=== PATIENT | female | born 1970 | race Caucasian/White ===

== ENCOUNTER 2024-09-30 13:58 | Emergency (ER) | payer OTHER, SELFPAY ==
[2024-09-30 13:59] VITALS: BMI 30.1
[2024-09-30 14:19] VITALS: BP 120/85; PULSE 103; RESP 18; TEMP 36.4; O2SAT 99
--- NOTE | 2024-09-30 14:29 | XR_ITS ---
Examination: Wrist, left 3 views Technique: Wrist AP, oblique, lateral 3 views Date and time of exam: September 30, 2024 1502 hours INDICATIONS: Patient fell today with injury to the wrist, wrist pain. FINDINGS: Severe osteopenia Severe narrowing radiocarpal intercarpal carpometacarpal joints No acute wrist fracture No opaque foreign body IMPRESSION: No acute wrist fracture Suggest short-term follow-up as clinically warranted
--- NOTE | 2024-09-30 14:29 | XR_ITS ---
EXAMINATION: Ankle, right 3 views . Technique: Ankle AP, oblique, lateral 3 views Date and time of exam: September 30, 2024 1502 hours INDICATIONS: Patient fell today with injury to the ankle, ankle pain. FINDINGS: Age-indeterminate fibular tip fracture No ankle dislocation Intertarsal osteoarthritis IMPRESSION: Nondisplaced fibular tip fracture
--- NOTE | 2024-09-30 14:29 | XR_ITS ---
Examination: Hand, left 3 views Technique: Hand AP, oblique, lateral 3 views Date and time of exam: September 30, 2024 at 1502 hours INDICATIONS: Patient fell today with injury to the wrist, wrist pain FINDINGS: Severe osteopenia Advanced narrowing radiocarpal intercarpal and carpometacarpal joints No acute fracture No dislocation IMPRESSION: No acute fracture
[2024-09-30 16:07] VITALS: BP 140/90; PULSE 86; RESP 18; TEMP 36.7; O2SAT 99
--- NOTE | 2024-09-30 17:29 | EDNOTE_ITS ---
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 Patient ports no head or neck injury Limitations: no limitations Related Data Home Medications ?Medication ?Instructions ?Recorded ?Confirmed adalimumab 40 mg/0.8 mL 40 mg subcut biwk ##0 05/23/14 subcutaneous syringe kit (Humira) lisdexamfetamine 50 mg capsule 50 mg PO QDAY #0 caps 05/23/14 (Vyvanse) Previous Rx's ?Medication ?Instructions ?Recorded tobramycin 0.3 % eye drops 2 drp Both eyes QID #5 mL 10/14/17 ondansetron HCl 4 mg tablet 4 mg PO TID PRN nausea and 07/02/22 vomiting #20 tabs Allergies Allergy/AdvReac Type Severity Reaction Status Date / Time codeine Allergy Severe VOMITING Unverified 09/30/24 14:01 Review of Systems Review of Systems Systems Reviewed: All systems reviewed, normal except as documented Constitutional Constitutional: Reports system reviewed and no additional complaints, except as documented, Denies fever(s) and Denies headache(s) Eyes Eyes: Reports system reviewed and no additional complaints, except as documented and Denies blurry vision ENT Ears, Nose, Mouth, and Throat: Reports system reviewed and no additional complaints, except as documented, Denies headache(s), Denies nasal congestion and Denies nasal discharge Cardiovascular Cardiovascular: Reports system reviewed and no additional complaints, except as documented, Denies chest pain and Denies dyspnea Respiratory Respiratory: Reports system reviewed and no additional complaints, except as documented, Denies chest congestion, Denies cough and Denies dyspnea Gastrointestinal Gastrointestinal: Reports system reviewed and no additional complaints, except as documented and Denies abdominal pain Musculoskeletal Musculoskeletal: Reports system reviewed and no additional complaints, except as documented and Reports other (Right ankle pain, left wrist and hand pain) Integumentary/Breasts Skin/Breast: Reports system reviewed and no additional complaints, except as documented and Denies rash Neurologic Neurologic: Reports system reviewed and no additional complaints, except as documented, Reports as per HPI and Denies headache(s) Past Medical History Social History SMOKING STATUS: Never smoker ED Exam General Limitations: Present no limitations General appearance: Present alert and in no apparent distress Head Head exam: Present atraumatic Eye Eye exam: Present normal appearance, PERRL and EOMI ENT ENT exam: Present normal exam, normal oropharynx and mucous membranes moist Neck Neck exam: Present normal inspection, full ROM and trachea midline Chest Chest inspection: Present normal inspection and symmetric chest wall rise Respiratory Respiratory exam: Present normal lung sounds bilaterally Cardiovascular Cardiovascular exam: Present regular rate, normal rhythm and normal heart sounds Abdominal Exam Abdominal exam: Present soft and normal bowel sounds Extremities Exam Extremities exam: Present full ROM, tenderness, normal capillary refill and other (Right ankle pain, left wrist and hand pain) Back Exam Back exam: Present normal inspection and full ROM Neurological Exam Neurological exam: Present alert, oriented X3 and CN II-XII intact Psychiatric Psychiatric exam: Present normal affect and normal mood Skin Skin exam: Present warm, dry, intact and normal color Course Quality Measures none Orders Category Date Time Status XR ankle comp RT min 3V Stat Exams 09/30/24 14:29 Completed XR hand comp LT min 3V Stat Exams 09/30/24 14:29 Completed XR wrist comp LT min 3V Stat Exams 09/30/24 14:29 Completed Vital Signs Vital signs: Vital Signs Temperature 97.6 F 09/30/24 14:19 Pulse Rate 103 H 09/30/24 14:19 Respiratory Rate 18 09/30/24 14:19 Blood Pressure 120/85 H 09/30/24 14:19 Pulse Oximetry (%) 99 09/30/24 14:19 Oxygen Delivery Method Room Air 09/30/24 14:19 O2 saturation 99% room air within normal limits Procedures -ED Splint Fabrication: Clinician Made Type: Posterior Leg Reason for Splint: Optimal Positioning and Pain Management Site condition: Pain Circulation Distal to Splint: Yes Movement Distal to Splint: Yes Senation Distal to Splint: Yes Tolerance: Tolerates Well Fall MDM Narrative MDM Narrative:: 54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 Patient ports no head or neck injury On exam patient has tenderness to the right ankle as well as the left wrist patient has chronic deformities secondary to RA Imaging obtained x-ray of the hand and wrist does not show any acute fracture X-ray of the right ankle shows distal fibular tip fracture Patient placed in a posterior short leg splint Patient reports she cannot use crutches patient does not want any [employer] or tramadol for the house Patient instructed to follow-up Workmen's Compensation doctor for worsening symptoms to return immediately Patient data External records reviewed:: [facility] previous records Clinical information provided by:: patient Social determinants that could affect healthcare access:: none Patient has the following chronic illnesses:: See history How is presenting disease/condition affected by chronic disease/condition?: exac erbated by Evaluation data The following diagnostics were reviewed and interpreted by me:: radiology exam(s) Lab and/or radiology exams considered but not ordered:: Radiology obtain Interpretation Summary: Reviewed by me Medications / Prescriptions Medications or Prescriptions considered but not ordered:: Given Medication administrations:: Given Consultations Consultation(s) initiated? (list below): No Diagnosis Fall Differential Diagnosis: other (Wrist fracture, wrist pain, ankle fracture, ankle sprain) Most likely diagnosis given after review of the tests above:: Distal fibula fracture, wrist sprain Admission Indicated Admission indicated?: not indicated Admission Request Was there a request for admission?: No Disposition Plan Disposition Plan: Discharge Discharge Attestation Discharge Attestation: The patient and all family members were given an opportunity to ask questions and understood the discharge instructions. Discharge instructions specifically effects, indications for sooner follow up or return to the emergency department, and the expected course of current diagnosis. Patient condition: Stable Discharge Plan Plan Patient Disposition: HOME (Self Care) Disposition Comment: Stable Prescriptions/Referrals Prescriptions/Med Rec: No Action adalimumab [Humira] 40 MG/0.8 ML syringe kit 40 mg Sub-Q biwk Qty: 0 lisdexamfetamine [Vyvanse] 50 MG capsule 50 mg PO QDAY Qty: 0 tobramycin 5 ML solution 2 drp Both eyes QID Qty: 5 0RF ondansetron HCl 4 mg tablet 4 mg PO TID PRN (Reason: nausea and vomiting) Qty: 20 0RF Referrals: Sisi Gonzalez MD [Primary Care Provider] - 10/03/24 Problem List Clinical Impression: Fracture of distal end of fibula, Left wrist pain, Work related injury Patient/Caregiver Discharge Instructions Education Materials: ED Arthralgia Additional Instructions: Please follow up with Workmen's Comp. as discussed for worsening symptoms return immediately Print Language: Kyrgyz Stand Alone Forms: Joy Award Info., Patient Portal Info Letter PA/SALES AND PRODUCTION MANAGER Supervising Physician PA/SALES AND PRODUCTION MANAGER Supervising Physician: Dr. Pineda
== END 2024-09-30 19:08 | disposition home or self-care (01) ==
PROVIDERS: Emergency Provider Emergency Medicine; PCP Family Medicine
DX: S82.831A Other fracture of upper and lower end of right fibula, initial encounter for closed fracture (principal); S69.92XA Unspecified injury of left wrist, hand and finger(s), initial encounter; W01.0XXA Fall on same level from slipping, tripping and stumbling without subsequent striking against object, initial encounter; Y92.219 Unspecified school as the place of occurrence of the external cause; Y99.0 Civilian activity done for income or pay
CPT/HCPCS: 29515; 73110; 73130; 73610; 99283

== ENCOUNTER → 2024-11-01 | Outpatient (CLI) | payer OTHER, SELFPAY ==
[2024-11-01 10:45] LABS: Quantiferon-TB* See Sep Rpt
[2024-11-01 11:07] LABS: Basophils % (Auto) 0 % (0-2.5); Eosinophils # (Auto) 0.2 Thou/mm3 (0.0-0.5); Eosinophils % (Auto) 2 % (0-10); Hematocrit 41.6 % (36.0-46.0); Hemoglobin 13.4 g/dL (12.0-16.0); Immature Granulocytes % (Auto) 1 % (0-0); Immature Granulocytes Auto 0.04 Thou/mm3 (0.00-0.00); Lymphocytes # (Auto) 2.7 Thou/mm3 (1.0-4.8); Lymphocytes % (Auto) 33 % (10-50); Mean Corpuscular HGB Conc 32.2 g/dl (31.0-37.0); Mean Corpuscular Hemoglobin 28.5 pg (25.0-35.0); Mean Corpuscular Volume 89 fL (80-100); Monocytes # (Auto) 0.6 Thou/mm3 (0.0-0.8); Monocytes % (Auto) 8 % (0-12); Neutrophils # (Auto) 4.6 Thou/mm3 (1.8-7.7); Neutrophils % (Auto) 56 % (37-80); Nucleated Red Blood Cell % 0 /100 WBC (0); Platelet Count 306 Thou/mm3 (140-440); RDW Standard Deviation 42.4 fL (36.4-46.3); White Blood Count 8.1 Thou/mm3 (3.6-11.0)
[2024-11-01 11:26] LABS: Alanine Aminotransferase 23 U/L (10-49); Albumin, Serum 4.6 gm/dL (3.5-5.0); Albumin/Globulin Ratio 1.6 (1.2-2.2); Alkaline Phosphatase 59 U/L (46-116); Anion Gap 7 (7-16); Aspartate Amino Transferase 26 U/L (0-34); BUN/Creatinine Ratio 15 Ratio (12-20); Bilirubin,Total 0.8 mg/dL (0.3-1.2); Blood Urea Nitrogen 12 mg/dL (9-23); Calcium 9.9 mg/dL (8.3-10.6); Calcium (Corrected) 9.9 mg/dL (8.5-10.1); Carbon Dioxide 27.2 mMol/L (20.0-31.0); Chloride 106 mMol/L (98-107); Creatinine (Component) 0.8 mg/dL (0.6-1.3); Globulin 2.8 gm/dL (2.3-3.5); Glucose 91 mg/dL (74-106); Osmolality,Calculated 279 (275-295); Potassium 4.3 mMol/L (3.4-5.1); Sodium 140 mMol/L (136-145); Total Protein 7.4 gm/dL (5.7-8.2); eGFR > 60 See Note
[2024-11-01 11:31] LABS: Sed Rate (ESR) 11 mm/hr (0-30)
[2024-11-01 13:27] LABS: Cocci Serology, IgM Negative (Negative)
[2024-11-03 13:01] LABS: Cocci Serology, IgG Negative (Negative)
== END | disposition home or self-care (01) ==
PROVIDERS: PCP Family Medicine; Referring Provider Internal Medicine Rheumatology; Visit Provider Internal Medicine Rheumatology
DX: M05.79 Rheumatoid arthritis with rheumatoid factor of multiple sites without organ or systems involvement (principal); Z79.60 Long term (current) use of unspecified immunomodulators and immunosuppressants
CPT/HCPCS: 36415; 80053; 85025; 85652; 86331; 86480; 86635